=== PATIENT | male | born 1965 | race Caucasian/White ===

== ENCOUNTER 2020-05-10 19:00 | Outpatient (CLI) | payer BC | END 2020-05-10 19:01 | disposition home or self-care (01) | LOC: SLEEPLAB 19:00 | PROVIDERS: ATTEND Family Medicine | DX: G47.33 Obstructive sleep apnea (adult) (pediatric) (principal); F32.9 Major depressive disorder, single episode, unspecified; I10 Essential (primary) hypertension; R53.83 Other fatigue; R40.0 Somnolence; E66.9 Obesity, unspecified; R06.83 Snoring; R51 Headache; Z68.32 Body mass index [BMI] 32.0-32.9, adult | CPT/HCPCS: 95811 ==

== ENCOUNTER 2023-02-28 10:14 | Outpatient (CLI) | payer BC | END 2023-02-28 10:15 | disposition home or self-care (01) | LOC: NM 10:14 | PROVIDERS: ATTEND Family Medicine | DX: R06.02 Shortness of breath (principal) | CPT/HCPCS: 78452; A9500 ==

== ENCOUNTER 2023-03-02 09:29 | Outpatient (CLI) | payer BC ==
[2023-03-02] MEDS ORDERED: Regadenoson 0.4 MG/5 ML SYRINGE ONE (11:51)
== END 2023-03-02 09:30 | disposition home or self-care (01) ==
LOC: NM 09:29
PROVIDERS: ATTEND Family Medicine
DX: R06.02 Shortness of breath (principal)
CPT/HCPCS: 93017; J2785

== ENCOUNTER 2024-03-15 09:26 | Outpatient (CLI) | payer BC | END 2024-03-15 09:27 | disposition home or self-care (01) | LOC: SCSRAD 09:26 | PROVIDERS: ATTEND Family Medicine | DX: N20.0 Calculus of kidney (principal); N28.89 Other specified disorders of kidney and ureter | CPT/HCPCS: 74019 ==